=== PATIENT | female | born 1955 | race Caucasian/White ===

== ENCOUNTER 2016-11-13 13:10 | Inpatient (IN) | payer OTHER ==
[~2016-11-13] VITALS: Ht 163.8 cm; Wt 108.4 kg
[2016-11-16] MEDS ORDERED: ESTR1TAB PO (14:11)
[2016-11-16] MEDS ORDERED: DICY10CA12 PO (14:11)
[2016-11-16] MEDS ORDERED: CLON0.5T PO (14:11)
[2016-11-16] MEDS ORDERED: CITA10TA4 PO (14:11)
[2016-11-16] MEDS ORDERED: ATOR40TA16 PO (14:11)
[2016-11-16] MEDS ORDERED: LISI10TA3 PO (14:11)
[2016-11-16] MEDS ORDERED: MELO-1 PO (14:11)
[2016-11-16] MEDS ORDERED: GLIP5TAB8 PO (14:11)
[2016-11-16] MEDS ORDERED: PANT20TA2 PO (14:11)
[2016-11-16] MEDS ORDERED: CHOL4POW4 PO (14:12)
[2016-11-16] MEDS ORDERED: CARV25TA PO (14:23)
[2016-11-17] MEDS ORDERED: SODIUM CHLORID 0.9% 500 ML IV PRN (11:45)
[2016-11-17] MEDS ORDERED: INSULIN HUMAN REGULAR 1,000 UNITS/10 ML VIAL SQ PRN (11:45)
[2016-11-17] MEDS ORDERED: CHLORHEXIDINE GLUCONATE 2 % 1 PACK (2 CLOTHS) TOPICAL PRN (11:45)
[2016-11-17] MEDS ORDERED: LACTATED RINGER'S 1000 ML IV PRN (11:45)
[2016-11-17] MEDS ORDERED: POVIDONE IODINE 5% (ANTISEPSIS KIT) 4 APPLICATIONS EACH NARE PRN (11:45)
[2016-11-17] MEDS ORDERED: ceFAZolin 3,000 MG/NS 100 ML (if >120 kg) IV SCH ×2 (11:45)
[2016-11-17] MEDS ORDERED: METOPROLOL TARTRATE 25 MG TAB PO PRN (11:45)
[2016-11-17 11:57] VITALS: BP 157/90; PULSE 83; RESP 20; TEMP 97.9; O2SAT 95
[2016-11-17] MEDS ORDERED: PROPOFOL 200 MG/20 ML AMP IV ONE (12:00)
[2016-11-17] MEDS ORDERED: NEOSTIGMINE 3 MG/3 ML SYR IV ONE (12:00)
[2016-11-17] MEDS ORDERED: GENTAMICIN IV SCH (12:00)
[2016-11-17] MEDS ORDERED: LACTATED RINGER'S 1000 ML INJ 4,000 ML IV ONE (12:00)
[2016-11-17] MEDS ORDERED: ONDANSETRON HCL 4 MG/2 ML VIAL IV PUSH ONE (12:00)
[2016-11-17] MEDS ORDERED: SODIUM CHLORIDE 0.9% IV SCH (12:00)
[2016-11-17] MEDS ORDERED: PHENYLEPH/NS 1000 MCG/10 ML SYR IV ONE (12:00)
[2016-11-17] MEDS ORDERED: MIDAZOLAM HCL 2 MG/2 ML VIAL ONE ×2 (13:41→15:06)
[2016-11-17] MEDS ORDERED: fentaNYL CITRATE 250 MCG/5 ML AMP ONE ×2 (15:06→17:10)
[2016-11-17] MEDS ORDERED: *morphine SULFATE 8 MG/ML PERIprocedure ONLY ONE ×2 (17:02→17:07)
[2016-11-17] MEDS ORDERED: MORPHINE SULFATE 4 MG/ML INJ ONE (17:10)
[2016-11-17] MEDS ORDERED: *HYDROmorphone PF 1 MG VIAL PERIprocedural Use ONLY ONE ×2 (17:10→17:17)
[2016-11-17] MEDS ORDERED: MORPHINE SULFATE 30 MG/30 ML PCA ONE (17:12)
[2016-11-17] MEDS ORDERED: LABETALOL HCL 100 MG/20 ML VIAL ONE (17:22)
[2016-11-17 17:30] LABS: HEMATOCRIT 41.9 % (35.0-46.0); REVIEW FLAG FINAL
[2016-11-17] MEDS ORDERED: MORPHINE SULFATE 30 MG/30 ML PCA IV SCH (17:30)
[2016-11-17] MEDS ORDERED: NALOXONE HCL 0.4 MG/ML AMP IV PRN (17:30)
[2016-11-17] MEDS ORDERED: DO NOT ADM ANY ANTICOAGULANT DRUGS PRN (17:45)
[2016-11-17] MEDS ORDERED: DEXT 5%-NACL 0.45% 1000 ML INJ 1,000 ML IV SCH (18:00)
--- NOTE | 2016-11-17 20:01 | PD.CONS ---
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 Postprocedure patient is admitted to ICU and critical care medicine is consulted for medical management. Review of Systems Constitutional: DENIES: Diaphoretic episodes, Fatigue, Fever, Weight gain, Weight loss, Chills, Dizziness, Change in appetite, Night Sweats Endocrine: DENIES: Abnorml menstrual pattern, Heat/cold intolerance, Polydipsia , Polyuria, Polyphagia Eyes: DENIES: Blurred vision, Diplopia, Eye inflammation, Eye pain, Vision loss , Photosensitivity, Double Vision Ears, nose, mouth, throat: DENIES: Tinnitus, Hearing loss, Vertigo, Nasal discharge, Oral lesions, Throat pain, Hoarseness, Ear Pain, Running Nose, Epistaxis, Sinus Pain, Toothache, Odynophagia Respiratory: DENIES: Apneas, Cough, Snoring, Wheezing, Hemoptysis, Sputum production, Shortness of breath Cardiovascular: DENIES: Chest pain, Palpitations, Syncope, Dyspnea on Exertion , PND, Lower Extremity Edema, Orthopnea, Claudication Gastrointestinal: DENIES: Abdominal pain, Black stools, Bloody stools, Constipation, Diarrhea, Nausea, Vomiting, Difficulty Swallowing, Anorexia Genitourinary: COMPLAINS OF: Urinary frequency, Hematuria, DENIES: Abnormal vaginal bleeding, Dysmenorrhea, Dyspareunia, Sexual dysfunction, Urinary incontinence, Urgency, Dysuria, Nocturia, Vaginal discharge Musculoskeletal: DENIES: Joint pain, Muscle aches, Stiffness, Joint Swelling, Back pain, Neck pain Integumentary: DENIES: Abnormal pigmentation, Pruritus, Rash, Nail changes, Breast masses, Breast skin changes, Nipple discharge Hematologic/lymphatic: DENIES: Bruising, Lymphadenopathy Immunologic/allergic: DENIES: Eczema, Urticaria Neurologic: DENIES: Abnormal gait, Headache, Localized weakness, Paresthesias, Seizures, Speech Problems, Tremor, Poor Balance Psychiatric: COMPLAINS OF: Anxiety, Depression, DENIES: Confusion, Mood changes, Hallucinations, Agitation, Suicidal Ideation, Homicidal Ideation, Delusions Past Family Social History Allergies: Coded Allergies: Codeine (Verified Allergy, Severe, Nausea/Vomiting, 11/16/16) Past Medical History Hypertension Type 2 diabetes mellitus Dyslipidemia Anxiety Depressions Arthritis GERD Past Surgical History None Reported Medications Reported Meds & Active Scripts Active Reported Carvedilol 25 Mg Tab 25 Mg PO BID Cholestyramine 4 Gm/Pkt Powd 4 Gm PO BID 1 packet contains 4 grams of cholestyramine. Dicyclomine (Dicyclomine HCl) 10 Mg Cap 10 Mg PO BID PRN Clonazepam 0.5 Mg Tab 0.5 Mg PO HS PRN Atorvastatin (Atorvastatin Calcium) 40 Mg Tab 40 Mg PO HS Lisinopril 10 Mg Tab 10 Mg PO DAILY Glipizide 5 Mg Tab 5 Mg PO DAILY Take 30 minutes before a meal Citalopram (Citalopram Hydrobromide) 10 Mg Tab 10 Mg PO DAILY Meloxicam 15 Mg Tab 15 Mg PO DAILY Estradiol 1 Mg Tab 1 Mg PO DAILY Pantoprazole (Pantoprazole Sodium) 20 Mg Tab 20 Mg PO DAILY Active Ordered Medications Current Medications Medications (Trade) Dose Ordered Sig/Ethan Route PRN Reason Start Time Stop Time Status Last Admin Dose Admin Morphine Sulfate (Morphine 1 Mg/ ml ASSORTER) 30 mg UNSCH IV 11/17/16 17:30 11/17/16 20:51 ASSORTER Dosage Infused (Pha) 1 Q8HR .XX 11/17/16 22:00 Naloxone HCl 0.4 mg 0.4 mg UNSCH PRN IV RESPIRATORY RATE LESS THAN 10 11/17/16 17:30 Dextrose/Sodium Chloride (D5W-07/20 NS 1000 ml Inj) 1,000 ml @ 150 mls/hr Q6H40M IV 11/17/16 18:00 11/17/16 18:00 Miscellaneous Information ALL NURSING DEPARTME... UNSCH PRN .XX SEE LABEL COMMENTS 11/17/16 17:45 11/18/16 17:44 Dextrose (D50w (Vial) Inj) 25 ml UNSCH PRN IV PUSH HYPOGLYCEMIA-SEE COMMENTS 11/17/16 20:15 Glucagon (Glucagon Inj) 1 mg UNSCH PRN OTHER HYPOGLYCEMIA-SEE COMMENTS 11/17/16 20:15 Atorvastatin Calcium (Lipitor) 40 mg HS PO 11/17/16 21:00 Carvedilol (Coreg) 25 mg BID PO 11/17/16 21:00 Cholestyramine Resin (Questran 4 Gm Pkt) 4 gm BID PO 11/17/16 21:00 Citalopram Hydrobromide (CeleXA) 10 mg DAILY PO 11/18/16 09:00 Clonazepam (KlonoPIN) 0.5 mg HS PRN PO MILD ANXIETY 11/17/16 20:45 Dicyclomine HCl (Bentyl) 10 mg BID PRN PO Bowel Management 11/17/16 20:45 Estradiol (Estradiol) 1 mg DAILY PO 11/18/16 09:00 Meloxicam (Mobic) 15 mg DAILY PO 11/18/16 09:00 Pantoprazole Sodium (Protonix) 20 mg DAILY PO 11/18/16 09:00 Family History Noncontributory Social History Negative 3 Physical Exam Vital Signs Vital Signs Date Time Temp Pulse Resp B/P Pulse Ox O2 Delivery O2 Flow Rate FiO2 11/17/16 11:57 97.9 83 20 157/90 95 Physical Exam GENERAL: Well-nourished, well-developed patient. SKIN: Warm and dry. HEAD: Normocephalic. EYES: No scleral icterus. No injection or drainage. NECK: Supple, trachea midline. No JVD or lymphadenopathy. CARDIOVASCULAR: Regular rate and rhythm without murmurs, gallops, or rubs. RESPIRATORY: Breath sounds equal bilaterally. No accessory muscle use. GASTROINTESTINAL: Abdomen soft, non-tender, nondistended. MUSCULOSKELETAL: No cyanosis, or edema. BACK: Nontender without obvious deformity. No CVA tenderness. EXTREMITIES: No clubbing cyanosis or edema Laboratory Laboratory Tests Test 11/17/16 11/17/16 11/17/16 12:00 15:40 17:13 Blood Type A POSITIVE A POSITIVE Antibody Screen NEGATIVE Blood Bank Comment Crossmatch Leukocyte-Reduced Red Blood Cells Hemoglobin 13.3 Hematocrit 41.9 Result Diagram: 11/17/16 1711 Assessment and Plan Assessment and Plan Status post radical left nephrectomy - Admit to ICU - BMP IN the morning - Strict I's and O's - IV fluid hydration - Management per urologist Hypertension - Coreg - Hold JAXON inhibitor pending BMP Type 2 diabetes mellitus - Insulin sliding scale - Hold glipizide while patient in the ICU Dyslipidemia - Atorvastatin Anxiety - Clonazepam when necessary Depressions - Celexa Arthritis - Meloxicam - We will hold while in the unit GERD - Protonix DVT GI prophylaxis - Teds SCDs, pharmacal prophylaxis per surgeon - Protonix Critical Care: The total critical care time was 35 minutes. Time to perform other separately billable procedures was not included in the critical care time. Rich March MD November 17, 2016 20:01
[2016-11-17 20:10] LABS: HEMATOCRIT 38.9 % (35.0-46.0); REVIEW FLAG FINAL
[2016-11-17] MEDS ORDERED: GLUCAGON 1 MG/ML VIAL OTHER PRN (20:15)
[2016-11-17] MEDS ORDERED: DEXTROSE 50% IN WATER 50 ML VIAL(D50) IV PUSH PRN (20:15)
[2016-11-17] MEDS ORDERED: DICYCLOMINE HCL 10 MG CAP PO PRN (20:45)
[2016-11-17] MEDS: ATORVASTATIN 40 MG TAB PO SCH (21:00)
[2016-11-17] MEDS: CARVEDILOL 12.5 MG TAB PO SCH (21:00)
[2016-11-17] MEDS ORDERED: CHOLESTYRAMINE 4 GM PACKET PO SCH (21:00)
[2016-11-17] MEDS: PCA - TOTAL MG MORPHINE DELIVERED PER SHIFT SCH (22:00)
[2016-11-17] MEDS ORDERED: SODIUM CHLOR 0.9% 1000 ML INJ 1,000 ML IV ONE (23:15)
[2016-11-17] MEDS: SODIUM CHLOR 0.9% 1000 ML INJ 1,000 ML IV SCH (23:15)
--- NOTE | 2016-11-17 23:22 | MP ---
cc: KATIE QIU MD DATE OF SURGERY: 11/17/2016 PREOPERATIVE DIAGNOSIS: Left renal mass. POSTOPERATIVE DIAGNOSIS: Left renal mass. OPERATION: Left radical nephrectomy. SURGEON: Dr. Qiu. BANKING SERVICES ADVISOR: Mario Guzman MD. ANESTHESIA General. NOTE IN DETAIL The patient is a 61-year-old was referred to our service in early October secondary to a mass that was noted on a CT scan for other reasons by Dr. Bunch. 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 Several urologists studied the films in our office. 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 Because of the size of the mass and the venous extension, etc., we elected to do this as an open procedure rather than as a laparoscopic assisted or as a robotic procedure as has become our custom. Her risk factors were enormous given her extreme, rather morbid obesity. We vacillated between a left flank incision and a chevron incision and ultimately settled on a chevron incision. She understood that she was at high-risk. She had received appropriate preoperative antibiotics in the holding area and was then taken to the operating room. General anesthesia was administered. A time out was taken for identification purposes and then she was placed in a slightly hyperextended supine position. Her left flank had been marked by the undersigned in the holding area before being moved to the operating room. Then a left chevron incision was made after she had been prepped and draped and a Puga catheter inserted. This was carried on down through a very large amount of adipose tissue to the rectus abdominis, etc., and through all of those layers and on into the abdomen. The left line of Toldt was then entered in to peel the left colon over the top of Gerota's fascia and blunt and sharp dissection was then utilized to free up the kidney. Because she had so much fat the adrenal gland actually slid off of the top of the kidney on the left hand side, and we elected therefore to leave it behind, since this was a lower pole mass predominantly. 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 We were able to milk the renal vein thrombus back into the kidney and use the stapling device across the vein and felt that this was quite clean. The artery was included in all of that. We appeared to have rather good hemostasis once we had the kidney taken out, but in the process of so doing, we did lose about 650 cc. She remained stable throughout all of this. We then carefully ran the small bowel to make sure that there were no injuries. We then allowed all of the remaining bowel to retract back into its normal anatomic position and then the anterior wall was closed in a multitude of layers with 0 PDS ligature. The skin was then closed over with skin clips. She tolerated the procedure well and was returned to the Recovery Room in stable condition. MD LUCY Vidal/CELIA /5:00 PM /10:57 PM
[2016-11-17] MEDS: INSULIN ASPART SUPPLEMENTAL SCALE SQ SCH (23:30)
[2016-11-18] VITALS (13 sets, daily range): BP systolic 125–161; BP diastolic 62–83; PULSE 82–108; RESP 11–20; TEMP 97.8–99.4; O2SAT 92–99
[2016-11-18] MEDS ORDERED: SODIUM CHLOR 0.9% 1000 ML INJ 1,000 ML IV SCH (03:30)
[2016-11-18] MEDS: SODIUM CHLOR 0.9% 1000 ML INJ 1,000 ML IV SCH ×2 (03:41→08:54)
[2016-11-18 04:41] LABS: AUTOMATED NEUTROPHIL # 7.1 TH/MM3 (1.8-7.7); BASOPHIL % 0.4 % (0.0-2.0); EOSINOPHIL % 0.1 % (0.0-4.0); HEMATOCRIT 37.9 % (35.0-46.0); HEMO FLAGS DIFF FINAL; LYMPH % 13.2 % (9.0-44.0); LYMPHOCYTE # 1.2 TH/MM3 (1.0-4.8); MEAN CELL VOLUME 82.8 FL (80.0-100.0); MEAN CORPUSCULAR HEMOGLOBIN 27.4 PG (27.0-34.0); MEAN CORPUSCULAR HGB CONC 33.2 % (32.0-36.0); MONO % 10.3 % (0.0-8.0); PLATELET COUNT 300 TH/MM3 (150-450); RED BLOOD COUNT 4.58 MIL/MM3 (4.00-5.30); RED CELL DISTRIBUTION WIDTH 16.1 % (11.6-17.2); WHITE BLOOD COUNT 9.3 TH/MM3 (4.0-11.0)
[2016-11-18 04:56] LABS: BICARBONATE 22.3 MEQ/L (21.0-32.0); CALCIUM-PROTEIN CORRECTED 7.7 MG/DL (8.5-10.1); MAGNESIUM 1.6 MG/DL (1.5-2.5); POTASSIUM 4.3 MEQ/L (3.5-5.1); TOTAL BILIRUBIN ADULT 0.4 MG/DL (0.2-1.0)
[2016-11-18] MEDS: PCA - TOTAL MG MORPHINE DELIVERED PER SHIFT SCH ×2 (05:06→14:00)
[2016-11-18] MEDS: INSULIN ASPART SUPPLEMENTAL SCALE SQ SCH ×4 (06:05→20:52)
[2016-11-18] MEDS: CITALOPRAM HYDROBROMIDE 20 MG TAB PO SCH (08:52)
[2016-11-18] MEDS: ESTRADIOL 1 MG TAB PO SCH (08:52)
[2016-11-18] MEDS: PANTOPRAZOLE SOD 20 MG DELAYED RELEASE TAB PO SCH (08:52)
[2016-11-18] MEDS: CARVEDILOL 12.5 MG TAB PO SCH ×2 (08:53→20:32)
[2016-11-18] MEDS ORDERED: MELOXICAM 15 MG TAB PO SCH (09:00)
--- NOTE | 2016-11-18 11:37 | HHI.CCPN ---
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 Postprocedure patient is admitted to ICU and critical care medicine is consulted for medical management. 10/19: Urine output acceptable. Stable hemodynamics. Objective Vital Signs Date Time Temp Pulse Resp B/P Pulse Ox O2 Delivery O2 Flow Rate FiO2 11/18/16 10:00 98 11/18/16 08:08 97 Nasal Cannula 1.00 11/18/16 08:00 97.8 15 131/62 Intake and Output 11/17/16 11/17/16 11/18/16 08:00 16:00 00:00 Intake Total 5158 ml Output Total 1208 ml Balance 3950 ml Result Diagram: 11/18/1640811/18/16408 Objective Remarks GENERAL: Well-nourished, well-developed patient. SKIN: Warm and dry. NECK: Supple, trachea midline. Airway widely patent. CARDIOVASCULAR: Regular rate and rhythm without murmurs, gallops, or rubs. RESPIRATORY: Breath sounds equal bilaterally. Comfortable pattern. GASTROINTESTINAL: Abdomen soft, non-tender, nondistended. BS present. MUSCULOSKELETAL: No cyanosis, or edema. Well perfused. BACK: Nontender without obvious deformity. No CVA tenderness. EXTREMITIES: No clubbing cyanosis or edema NEURO: Alert, O X 3, cooperative. A/P Assessment and Plan Status post radical left nephrectomy - Admit to ICU - BMP IN the morning - Strict I's and O's - IV fluid hydration Hypertension - Coreg - Hold JAXON inhibitor pending BMP Type 2 diabetes mellitus - Insulin sliding scale - Hold glipizide while patient in the ICU Dyslipidemia - Atorvastatin Anxiety - Clonazepam when necessary Depressions - Celexa Arthritis - Meloxicam - We will hold while in the unit GERD - Protonix DVT GI prophylaxis - Teds SCDs, pharmacal prophylaxis per surgeon - Protonix Overall impression: Doing well s/p nephrectomy. Olayinka Casillas MD November 18, 2016 11:37
[2016-11-18] MEDS: DEXT 5%-NACL 0.9% 1000 ML INJ 1,000 ML IV SCH ×2 (15:00→21:44)
[2016-11-18] MEDS: ONDANSETRON HCL 4 MG/2 ML VIAL IV PUSH PRN (15:35)
[2016-11-18] MEDS: CHOLESTYRAMINE 4 GM PACKET PO SCH (18:00)
[2016-11-18] MEDS ORDERED: diphenhydrAMINE HCL 25 MG CAP PO PRN (19:15)
[2016-11-18] MEDS ORDERED: NALOXONE HCL 0.4 MG/ML AMP IV PRN (19:15)
[2016-11-18] MEDS: ATORVASTATIN 40 MG TAB PO SCH (20:32)
[2016-11-18] MEDS: ACETAMINOPHEN 325 MG TAB PO PRN (20:33)
[2016-11-18] MEDS: HYDROmorphone HCL PCA 6 MG/30 ML IV SCH (20:38)
[2016-11-18] MEDS: PCA - TOTAL MG DILAUDID DELIVERED PER SHIFT SCH (22:00)
[2016-11-19] VITALS (12 sets, daily range): BP systolic 120–172; BP diastolic 65–88; PULSE 71–92; RESP 12–18; TEMP 98.1–98.5; O2SAT 92–95
[2016-11-19] MEDS: DEXT 5%-NACL 0.9% 1000 ML INJ 1,000 ML IV SCH ×3 (03:36→16:32)
[2016-11-19] MEDS: ONDANSETRON HCL 4 MG/2 ML VIAL IV PUSH PRN ×4 (03:39→21:54)
[2016-11-19 03:53] LABS: AUTOMATED NEUTROPHIL # 5.8 TH/MM3 (1.8-7.7); BASOPHIL % 0.5 % (0.0-2.0); EOSINOPHIL # 0.1 TH/MM3 (0-0.4); EOSINOPHIL % 1.2 % (0.0-4.0); HEMATOCRIT 33.7 % (35.0-46.0); HEMO FLAGS DIFF FINAL; LYMPH % 19.4 % (9.0-44.0); LYMPHOCYTE # 1.6 TH/MM3 (1.0-4.8); MEAN CELL VOLUME 82.1 FL (80.0-100.0); MEAN CORPUSCULAR HEMOGLOBIN 26.3 PG (27.0-34.0); MONO % 10.3 % (0.0-8.0); NEUT % 68.6 % (16.0-70.0); PLATELET COUNT 240 TH/MM3 (150-450); RED BLOOD COUNT 4.11 MIL/MM3 (4.00-5.30); RED CELL DISTRIBUTION WIDTH 15.8 % (11.6-17.2); WHITE BLOOD COUNT 8.5 TH/MM3 (4.0-11.0)
[2016-11-19 04:26] LABS: BICARBONATE 25.7 MEQ/L (21.0-32.0); POTASSIUM 3.8 MEQ/L (3.5-5.1)
[2016-11-19 04:39] LABS: CALCIUM-PROTEIN CORRECTED 8.2 MG/DL (8.5-10.1)
[2016-11-19] MEDS: PCA - TOTAL MG DILAUDID DELIVERED PER SHIFT SCH ×3 (06:00→22:00)
[2016-11-19] MEDS: CHOLESTYRAMINE 4 GM PACKET PO SCH ×2 (06:00→17:25)
[2016-11-19] MEDS: INSULIN ASPART SUPPLEMENTAL SCALE SQ SCH ×4 (06:29→21:00)
[2016-11-19] MEDS ORDERED: PNEUMOCOCCAL POLYVALENT INJ 25 MCG/0.5 ML SYR IM ONE (10:00)
[2016-11-19] MEDS ORDERED: INFLUENZA VIRUS VACCINE (QUADRIVALENT) 0.5 ML SYR IM ONE (10:00)
[2016-11-19] MEDS: CARVEDILOL 12.5 MG TAB PO SCH ×2 (10:36→21:55)
[2016-11-19] MEDS: ESTRADIOL 1 MG TAB PO SCH (10:36)
[2016-11-19] MEDS: PANTOPRAZOLE SOD 20 MG DELAYED RELEASE TAB PO SCH (10:41)
[2016-11-19] MEDS: CITALOPRAM HYDROBROMIDE 20 MG TAB PO SCH (10:41)
[2016-11-19] MEDS: ACETAMINOPHEN 325 MG TAB PO PRN (16:29)
--- NOTE | 2016-11-19 17:53 | HHI.CCPN ---
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 Postprocedure patient is admitted to ICU and critical care medicine is consulted for medical management. 11/18: Urine output acceptable. Stable hemodynamics. 11/19: Breathing comfortably, urine acceptable, remains well perfused. Objective Vital Signs Date Time Temp Pulse Resp B/P Pulse Ox O2 Delivery O2 Flow Rate FiO2 11/19/16 16:00 98.3 90 18 127/70 94 11/19/16 07:00 Nasal Cannula 1.00 Intake and Output 11/18/16 11/18/16 11/19/16 08:00 16:00 00:00 Intake Total 1948 ml 2180 ml 886 ml Output Total 250 ml 1675 ml 1500 ml Balance 1698 ml 505 ml -614 ml Result Diagram: 11/19/16 0326 11/19/16 0326 Objective Remarks GENERAL: Comfortable. SKIN: Warm and dry. NECK: Supple, trachea midline. Airway widely patent. CARDIOVASCULAR: Regular rate and rhythm without murmurs, gallops, or rubs. No JVD. RESPIRATORY: Breath sounds equal bilaterally. Comfortable pattern. GASTROINTESTINAL: Abdomen soft, non-tender, nondistended. BS present. MUSCULOSKELETAL: No cyanosis, or edema. Well perfused.. NEURO: Alert, O X 3, cooperative. A/P Assessment and Plan Status post radical left nephrectomy - Admit to ICU - BMP IN the morning - Strict I's and O's - IV fluid hydration Hypertension - Coreg - Hold JAXON inhibitor pending BMP Type 2 diabetes mellitus - Insulin sliding scale - Hold glipizide while patient in the ICU Dyslipidemia - Atorvastatin Anxiety - Clonazepam when necessary Depressions - Celexa Arthritis - Meloxicam - We will hold while in the unit GERD - Protonix DVT GI prophylaxis - Teds SCDs, pharmacal prophylaxis per surgeon - Protonix Overall impression: Doing well s/p nephrectomy. Ambulate. Olayinka Casillas MD November 19, 2016 17:53
--- NOTE | 2016-11-19 19:01 | HHI.PR ---
Subjective Patient symptoms today feels better, still nauseated, but less so than yesterday Objective Vital Signs Vital Signs Date Time Temp Pulse Resp B/P Pulse Ox O2 Delivery O2 Flow Rate FiO2 11/19/16 18:00 89 11/19/16 16:00 98.3 90 18 127/70 94 11/19/16 16:00 90 11/19/16 14:00 85 11/19/16 14:00 17 11/19/16 12:00 98.5 92 14 172/88 92 11/19/16 12:00 92 11/19/16 10:00 85 11/19/16 08:00 98.3 90 17 146/75 95 11/19/16 08:00 90 11/19/16 07:00 95 Nasal Cannula 1.00 11/19/16 06:00 80 11/19/16 06:00 14 11/19/16 04:00 98.3 82 13 120/65 93 11/19/16 04:00 82 11/19/16 02:00 82 11/19/16 00:00 98.4 86 13 128/69 93 11/19/16 00:00 86 11/18/16 22:00 96 11/18/16 22:00 16 11/18/16 20:38 20 11/18/16 20:00 104 11/18/16 20:00 99.4 104 20 161/80 96 11/18/16 19:00 92 Nasal Cannula 3.00 Intake & Output 11/19/16 11/19/16 07:00 19:00 Intake Total 2124 ml 1195 ml Output Total 2100 ml 950 ml Balance 24 ml 245 ml Intake Oral 20 ml 120 ml IV Total 2104 ml 1075 ml Output Urine Total 2100 ml 950 ml # Bowel Movements 0 Result Diagram: 11/19/16 0326 11/19/16 0326 Objective Remarks Chest clear Abd: no BS, no Flatus, no BM UO very good, clear, labs stable Medications and IVs Current Medications Medications (Trade) Dose Ordered Sig/Ethan Route Start Time Stop Time Status Last Admin (D50w (Vial) Inj) 25 ml UNSCH PRN IV PUSH 11/17/16 20:15 (Glucagon Inj) 1 mg UNSCH PRN OTHER 11/17/16 20:15 (Lipitor) 40 mg HS PO 11/17/16 21:00 11/18/16 20:32 (Coreg) 25 mg BID PO 11/17/16 21:00 11/19/16 10:36 (CeleXA) 10 mg DAILY PO 11/18/16 09:00 11/19/16 10:41 (KlonoPIN) 0.5 mg HS PRN PO 11/17/16 20:45 (Bentyl) 10 mg BID PRN PO 11/17/16 20:45 (Estradiol) 1 mg DAILY PO 11/18/16 09:00 11/19/16 10:36 (Mobic) 15 mg DAILY PO 11/18/16 09:00 Hold (Protonix) 20 mg DAILY PO 11/18/16 09:00 11/19/16 10:41 (Questran 4 Gm Pkt) 4 gm BID@06,18 PO 11/18/16 18:00 Acetaminophen 650 mg 650 mg Q6H PRN PO 11/18/16 14:30 11/19/16 16:29 (D5W-NS 1000 ml Inj) 1,000 ml @ 150 mls/hr Q6H40M IV 11/18/16 15:00 11/19/16 16:32 (Zofran Inj) 4 mg Q6H PRN IV PUSH 11/18/16 15:30 11/19/16 16:16 (Dilaudid SCHEDULING COORDINATOR Inj) 6 mg UNSCH IV 11/18/16 19:15 11/18/16 20:38 SCHEDULING COORDINATOR Dosage Infused (Pha) 1 Q8HR .XX 11/18/16 22:00 11/19/16 14:00 (Narcan Inj) 0.4 mg UNSCH PRN IV 11/18/16 19:15 (Benadryl) 25 mg Q6H PRN PO 11/18/16 19:15 Assessment and Plan Assessment and Plan ileus persists wound dry Plan: per orders, try Reglan and dulcolax continue to ambulate, incentive inspirometer repeat labs in the morning cath out in the morning path still pending Trudi,Espinoza Chacon MD November 19, 2016 19:01
[2016-11-19] MEDS: ATORVASTATIN 40 MG TAB PO SCH (21:00)
[2016-11-19] MEDS: BISACODYL 10 MG SUPP RECTAL SCH (21:00)
[2016-11-19] MEDS: METOCLOPRAMIDE HCL 10 MG/2 ML VIAL IV SCH (21:57)
[2016-11-19] MEDS: HYDROmorphone HCL PCA 6 MG/30 ML IV SCH (23:01)
[2016-11-20] VITALS (12 sets, daily range): BP systolic 109–171; BP diastolic 63–83; PULSE 62–74; RESP 11–18; TEMP 98–98.4; O2SAT 96–99
[2016-11-20] MEDS: DEXT 5%-NACL 0.9% 1000 ML INJ 1,000 ML IV SCH ×4 (00:20→17:44)
[2016-11-20] MEDS: ACETAMINOPHEN 325 MG TAB PO PRN ×4 (05:02→23:07)
[2016-11-20 05:55] LABS: BICARBONATE 26.3 MEQ/L (21.0-32.0); POTASSIUM 3.9 MEQ/L (3.5-5.1)
[2016-11-20] MEDS: PCA - TOTAL MG DILAUDID DELIVERED PER SHIFT SCH ×3 (06:00→22:00)
[2016-11-20] MEDS: CHOLESTYRAMINE 4 GM PACKET PO SCH ×2 (06:00→17:36)
[2016-11-20 06:02] LABS: AUTOMATED NEUTROPHIL # 6.9 TH/MM3 (1.8-7.7); BASOPHIL # 0.1 TH/MM3 (0-0.2); BASOPHIL % 1.5 % (0.0-2.0); EOSINOPHIL # 0.2 TH/MM3 (0-0.4); EOSINOPHIL % 2.1 % (0.0-4.0); HEMATOCRIT 31.4 % (35.0-46.0); HEMO FLAGS DIFF FINAL; LYMPH % 17.1 % (9.0-44.0); LYMPHOCYTE # 1.6 TH/MM3 (1.0-4.8); MEAN CELL VOLUME 81.6 FL (80.0-100.0); NEUT % 71.3 % (16.0-70.0); PLATELET COUNT 217 TH/MM3 (150-450); RED BLOOD COUNT 3.84 MIL/MM3 (4.00-5.30); RED CELL DISTRIBUTION WIDTH 15.7 % (11.6-17.2); WHITE BLOOD COUNT 9.6 TH/MM3 (4.0-11.0)
[2016-11-20 06:12] LABS: CALCIUM-PROTEIN CORRECTED 8.4 MG/DL (8.5-10.1)
[2016-11-20] MEDS: ONDANSETRON HCL 4 MG/2 ML VIAL IV PUSH PRN ×4 (06:15→23:12)
[2016-11-20] MEDS: INSULIN ASPART SUPPLEMENTAL SCALE SQ SCH ×4 (06:37→20:41)
[2016-11-20] MEDS: CARVEDILOL 12.5 MG TAB PO SCH ×2 (08:07→20:40)
[2016-11-20] MEDS: PANTOPRAZOLE SOD 20 MG DELAYED RELEASE TAB PO SCH (08:07)
[2016-11-20] MEDS: METOCLOPRAMIDE HCL 10 MG/2 ML VIAL IV SCH ×3 (08:08→17:35)
[2016-11-20] MEDS: BISACODYL 10 MG SUPP RECTAL SCH (08:08)
[2016-11-20] MEDS: CITALOPRAM HYDROBROMIDE 20 MG TAB PO SCH (08:09)
[2016-11-20] MEDS: ESTRADIOL 1 MG TAB PO SCH (08:13)
--- NOTE | 2016-11-20 13:38 | HHI.CCPN ---
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 Postprocedure patient is admitted to ICU and critical care medicine is consulted for medical management. 11/18: Urine output acceptable. Stable hemodynamics. 11/19: Breathing comfortably, urine acceptable, remains well perfused. 11/20: Alert, breathing well. Urine output excellent, renal function good. Add hydralazine for hypertension, hold JAXON-I until creatinine improved for several days. Objective Vital Signs Date Time Temp Pulse Resp B/P Pulse Ox O2 Delivery O2 Flow Rate FiO2 11/20/16 12:00 98.0 62 11 171/83 96 11/20/16 07:00 Nasal Cannula 2.00 Intake and Output 11/19/16 11/19/16 11/20/16 08:00 16:00 00:00 Intake Total 1238 ml 1195 ml 1252 ml Output Total 600 ml 950 ml 1200 ml Balance 638 ml 245 ml 52 ml Result Diagram: 11/20/16 0440 11/20/16 0440 Objective Remarks GENERAL: Comfortable. SKIN: Warm and dry. NECK: Supple, trachea midline. Airway widely patent. CARDIOVASCULAR: Regular rate and rhythm without murmurs, gallops, or rubs. No JVD. RESPIRATORY: Breath sounds equal bilaterally. Comfortable pattern. GASTROINTESTINAL: Abdomen soft, non-tender, nondistended. BS present. MUSCULOSKELETAL: No cyanosis, or edema. Well perfused.. NEURO: Alert, O X 3, cooperative. A/P Assessment and Plan Status post radical left nephrectomy - Admit to ICU - BMP IN the morning - Strict I's and O's - IV fluid hydration Hypertension - Coreg - Hold JAXON inhibitor pending BMP Type 2 diabetes mellitus - Insulin sliding scale - Hold glipizide while patient in the ICU Dyslipidemia - Atorvastatin Anxiety - Clonazepam when necessary Depressions - Celexa Arthritis - Meloxicam - We will hold while in the unit GERD - Protonix DVT GI prophylaxis - Teds SCDs, pharmacal prophylaxis per surgeon - Protonix Overall impression: Doing well s/p nephrectomy. Ambulate. Add anti-hypertensive meds. Olayinka Casillas MD November 20, 2016 13:38
[2016-11-20] MEDS: hydrALAZINE HCL 50 MG TAB PO SCH ×2 (14:40→20:40)
--- NOTE | 2016-11-20 17:18 | HHI.PR ---
Subjective Patient symptoms today feels better. Had 2 bowel movements. still nauseated. Zofran changed to q4. Denies CP/SOB/F/C. No appetite. Been OOB. on Dilaudid GARBAGE MAN. Objective Vital Signs Vital Signs Date Time Temp Pulse Resp B/P Pulse Ox O2 Delivery O2 Flow Rate FiO2 11/20/16 16:00 73 11/20/16 16:00 98.4 73 15 109/66 97 11/20/16 14:00 69 11/20/16 14:00 15 11/20/16 12:00 98.0 62 11 171/83 96 11/20/16 12:00 62 11/20/16 10:00 63 11/20/16 08:00 73 11/20/16 08:00 98.3 73 18 147/74 96 11/20/16 07:00 96 Nasal Cannula 2.00 11/20/16 06:37 15 11/20/16 06:00 70 11/20/16 06:00 15 11/20/16 04:00 73 11/20/16 04:00 98.1 72 18 152/79 99 11/20/16 02:00 71 11/20/16 00:00 74 11/20/16 00:00 98.0 74 15 118/63 99 11/19/16 23:01 15 11/19/16 22:00 71 11/19/16 22:00 15 11/19/16 20:00 98.1 78 12 155/74 95 11/19/16 20:00 96 Nasal Cannula 2.00 11/19/16 20:00 78 11/19/16 18:00 89 Intake & Output 11/20/16 11/20/16 07:00 19:00 Intake Total 2622 ml 1251 ml Output Total 2200 ml 1350 ml Balance 422 ml -99 ml Intake Oral 50 ml 50 ml IV Total 2572 ml 1201 ml Output Urine Total 2000 ml 1350 ml Emesis 200 ml # Bowel Movements 0 0 Result Diagram: 11/20/1643911/20/16 0440 Objective Remarks NAD. A/O x 3 CTAB RRR abd soft, NT, ND. dressing dry. [place] clear, yellow Medications and IVs Current Medications Medications (Trade) Dose Ordered Sig/Ethan Route Start Time Stop Time Status Last Admin (D50w (Vial) Inj) 25 ml UNSCH PRN IV PUSH 11/17/16 20:15 (Glucagon Inj) 1 mg UNSCH PRN OTHER 11/17/16 20:15 (Lipitor) 40 mg HS PO 11/17/16 21:00 11/18/16 20:32 (Coreg) 25 mg BID PO 11/17/16 21:00 11/20/16 08:07 (CeleXA) 10 mg DAILY PO 11/18/16 09:00 11/20/16 08:09 (KlonoPIN) 0.5 mg HS PRN PO 11/17/16 20:45 (Bentyl) 10 mg BID PRN PO 11/17/16 20:45 (Estradiol) 1 mg DAILY PO 11/18/16 09:00 11/20/16 08:13 (Mobic) 15 mg DAILY PO 11/18/16 09:00 Hold (Protonix) 20 mg DAILY PO 11/18/16 09:00 11/20/16 08:07 (Questran 4 Gm Pkt) 4 gm BID@06,18 PO 11/18/16 18:00 Acetaminophen 650 mg 650 mg Q6H PRN PO 11/18/16 14:30 11/20/16 11:44 (D5W-NS 1000 ml Inj) 1,000 ml @ 100 mls/hr Q10H IV 11/18/16 15:00 11/20/16 11:54 (Dilaudid GARBAGE MAN Inj) 6 mg UNSCH IV 11/18/16 19:15 11/19/16 23:01 GARBAGE MAN Dosage Infused (Pha) 1 Q8HR .XX 11/18/16 22:00 11/20/16 14:00 (Narcan Inj) 0.4 mg UNSCH PRN IV 11/18/16 19:15 (Benadryl) 25 mg Q6H PRN PO 11/18/16 19:15 (Dulcolax Supp) 10 mg DAILY RECTAL 11/19/16 21:00 11/20/16 08:08 (Reglan Inj) 5 mg TID IV 11/19/16 21:00 11/20/16 12:01 (Apresoline) 50 mg Q12HR PO 11/20/16 13:45 11/20/16 14:40 (Zofran Inj) 4 mg Q4H PRN IV PUSH 11/20/16 17:15 Assessment and Plan Assessment and Plan POD #3 Left Open Radical Nephrectomy -Increase Reglan to 10 mg TID. -Ambulate/IS -d/c [place] in a.m. -possible clears tomorrow -Dilaudid GARBAGE MAN Mario Guzman MD November 20, 2016 17:18
[2016-11-20] MEDS: ATORVASTATIN 40 MG TAB PO SCH (20:41)
[2016-11-20] MEDS: clonazePAM 0.5 MG TAB PO PRN (23:15)
[2016-11-20] MEDS: HYDROmorphone HCL PCA 6 MG/30 ML IV SCH (23:30)
[2016-11-21] VITALS (12 sets, daily range): BP systolic 107–168; BP diastolic 56–89; PULSE 61–92; RESP 15–21; TEMP 97.8–98.3; O2SAT 96–97
[2016-11-21] MEDS: CHOLESTYRAMINE 4 GM PACKET PO SCH ×2 (04:04→17:42)
[2016-11-21] MEDS: ONDANSETRON HCL 4 MG/2 ML VIAL IV PUSH PRN ×2 (04:05→15:42)
[2016-11-21] MEDS: ACETAMINOPHEN 325 MG TAB PO PRN (04:05)
[2016-11-21] MEDS: DEXT 5%-NACL 0.9% 1000 ML INJ 1,000 ML IV SCH ×3 (04:05→16:13)
[2016-11-21 05:26] LABS: BICARBONATE 26.8 MEQ/L (21.0-32.0); POTASSIUM 3.3 MEQ/L (3.5-5.1)
[2016-11-21] MEDS: PCA - TOTAL MG DILAUDID DELIVERED PER SHIFT SCH (06:00)
[2016-11-21] MEDS: INSULIN ASPART SUPPLEMENTAL SCALE SQ SCH ×4 (06:11→21:00)
[2016-11-21] MEDS ORDERED: POTASSIUM CHLOR 20 MEQ PREMIX 100 ML IV ONE ×2 (07:15→18:30)
--- NOTE | 2016-11-21 07:23 | HHI.CCPN ---
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 Postprocedure patient is admitted to ICU and critical care medicine is consulted for medical management. 11/18: Urine output acceptable. Stable hemodynamics. 11/19: Breathing comfortably, urine acceptable, remains well perfused. 11/20: Alert, breathing well. Urine output excellent, renal function good. Add hydralazine for hypertension, hold JAXON-I until creatinine improved for several days. 11/21: Urine output excellent. Replace K. BP control improved. Objective Vital Signs Date Time Temp Pulse Resp B/P Pulse Ox O2 Delivery O2 Flow Rate FiO2 11/21/16 06:00 61 11/21/16 06:00 22 11/21/16 04:00 97.8 134/81 97 11/20/16 19:00 Nasal Cannula 2.00 Intake and Output 11/20/16 11/20/16 11/21/16 08:00 16:00 00:00 Intake Total 1370 ml 1251 ml 773 ml Output Total 1000 ml 1350 ml 525 ml Balance 370 ml -99 ml 248 ml Result Diagram: 11/20/16 0440 11/21/16 0416 Objective Remarks GENERAL: Comfortable. SKIN: Warm and dry. NECK: Supple, trachea midline. Airway widely patent. CARDIOVASCULAR: Regular rate and rhythm without murmurs, gallops, or rubs. No JVD. RESPIRATORY: Breath sounds equal bilaterally. Comfortable pattern. No wheezes or crackles. GASTROINTESTINAL: Abdomen soft, nondistended. BS present. MUSCULOSKELETAL: No cyanosis, or edema. Well perfused. NEURO: Alert, O X 3, cooperative. A/P Assessment and Plan Status post radical left nephrectomy - Admit to ICU - BMP IN the morning - Strict I's and O's - IV fluid hydration at 75. Hypertension - Coreg - Hold JAXON inhibitor pending BMP. Restart any day. Type 2 diabetes mellitus - Insulin sliding scale - Hold glipizide while patient in the ICU Dyslipidemia - Atorvastatin Anxiety - Clonazepam when necessary Depressions - Celexa Arthritis - Meloxicam - We will hold while in the unit GERD - Protonix DVT GI prophylaxis - Teds SCDs, pharmacal prophylaxis per surgeon - Protonix Overall impression: Doing well s/p nephrectomy. Ambulate. Add anti-hypertensive meds -> done. Olayinka Casillas MD November 21, 2016 07:23
--- NOTE | 2016-11-21 08:03 | HHI.PR ---
Subjective Patient symptoms today no acute issues overnight. pain controlled. nausea improved. Had BM. Has appetite. Denies CP/SOB. continues to have headaches. Has used Tramadol in past with good success. Objective Vital Signs Vital Signs Date Time Temp Pulse Resp B/P Pulse Ox O2 Delivery O2 Flow Rate FiO2 11/21/16 07:00 99 Nasal Cannula 2.00 11/21/16 06:00 61 11/21/16 06:00 22 11/21/16 04:00 97.8 67 18 134/81 97 11/21/16 04:00 69 11/21/16 02:00 61 11/21/16 00:00 63 11/21/16 00:00 98.1 63 15 107/56 96 11/20/16 23:30 22 11/20/16 22:00 72 11/20/16 22:00 21 11/20/16 20:00 98.4 70 16 146/78 96 11/20/16 20:00 64 11/20/16 19:00 97 Nasal Cannula 2.00 11/20/16 18:00 68 11/20/16 16:00 73 11/20/16 16:00 98.4 73 15 109/66 97 11/20/16 14:00 69 11/20/16 14:00 15 11/20/16 12:00 98.0 62 11 171/83 96 11/20/16 12:00 62 11/20/16 10:00 63 Intake & Output 11/21/16 11/21/16 07:00 19:00 Intake Total 1495 ml Output Total 1075 ml Balance 420 ml Intake Oral 100 ml IV Total 1395 ml Output Urine Total 1075 ml # Bowel Movements 2 Result Diagram: 11/20/16 0440 11/21/16 0416 Objective Remarks NAD. A/O x 3 CTAB RRR abd soft, NT, ND. dressing dry. [place] clear, yellow Medications and IVs Current Medications Medications (Trade) Dose Ordered Sig/Ethan Route Start Time Stop Time Status Last Admin (D50w (Vial) Inj) 25 ml UNSCH PRN IV PUSH 11/17/16 20:15 (Glucagon Inj) 1 mg UNSCH PRN OTHER 11/17/16 20:15 (Lipitor) 40 mg HS PO 11/17/16 21:00 11/20/16 20:41 (Coreg) 25 mg BID PO 11/17/16 21:00 11/20/16 20:40 (CeleXA) 10 mg DAILY PO 11/18/16 09:00 11/20/16 08:09 (KlonoPIN) 0.5 mg HS PRN PO 11/17/16 20:45 11/20/16 23:15 (Bentyl) 10 mg BID PRN PO 11/17/16 20:45 (Estradiol) 1 mg DAILY PO 11/18/16 09:00 11/20/16 08:13 (Mobic) 15 mg DAILY PO 11/18/16 09:00 Hold (Protonix) 20 mg DAILY PO 11/18/16 09:00 11/20/16 08:07 (Questran 4 Gm Pkt) 4 gm BID@06,18 PO 11/18/16 18:00 Acetaminophen 650 mg 650 mg Q6H PRN PO 11/18/16 14:30 11/21/16 04:05 (D5W-NS 1000 ml Inj) 1,000 ml @ 75 mls/hr [id number] IV 11/18/16 15:00 11/21/16 04:05 (Dilaudid [employer] Inj) 6 mg UNSCH IV 11/18/16 19:15 11/20/16 23:30 [employer] Dosage Infused (Pha) 1 Q8HR .XX 11/18/16 22:00 11/21/16 06:00 (Narcan Inj) 0.4 mg UNSCH PRN IV 11/18/16 19:15 (Benadryl) 25 mg Q6H PRN PO 11/18/16 19:15 (Dulcolax Supp) 10 mg DAILY RECTAL 11/19/16 21:00 11/20/16 08:08 (Apresoline) 50 mg Q12HR PO 11/20/16 13:45 11/20/16 20:40 (Zofran Inj) 4 mg Q4H PRN IV PUSH 11/20/16 17:15 11/21/16 04:05 Metoclopramide HCl 10 mg 10 mg TID IV 11/20/16 18:00 11/20/16 17:35 (KCl 20 Meq Premix Inj) 100 ml @ 50 mls/hr BOLUS ONCE IV 11/21/16 07:15 11/21/16 09:14 11/21/16 07:43 Assessment and Plan Assessment and Plan POD #4 Left Open Radical Nephrectomy -clear liquid diet. 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 -D/C [place]. -Ambulate/IS -GI/DVT prophylaxis -appreciate Internship input. Mario Guzman MD November 21, 2016 08:03
[2016-11-21] MEDS: BISACODYL 10 MG SUPP RECTAL SCH ×2 (08:38→09:00)
[2016-11-21] MEDS: hydrALAZINE HCL 50 MG TAB PO SCH ×2 (08:38→20:41)
[2016-11-21] MEDS: ACETAMINOPHEN 1000 MG/100 ML VIAL IV SCH ×3 (08:38→20:40)
[2016-11-21] MEDS: PANTOPRAZOLE SOD 20 MG DELAYED RELEASE TAB PO SCH (08:38)
[2016-11-21] MEDS: METOCLOPRAMIDE HCL 10 MG/2 ML VIAL IV SCH ×3 (08:38→17:41)
[2016-11-21] MEDS: ESTRADIOL 1 MG TAB PO SCH (08:38)
[2016-11-21] MEDS: CITALOPRAM HYDROBROMIDE 20 MG TAB PO SCH (08:39)
[2016-11-21] MEDS: CARVEDILOL 12.5 MG TAB PO SCH ×2 (08:41→20:42)
[2016-11-21] MEDS: traMADol HCL 50 MG TAB PO PRN ×2 (17:41→18:16)
[2016-11-21] MEDS: LABETALOL HCL 100 MG/20 ML VIAL IV PRN (18:25)
[2016-11-21] MEDS: ATORVASTATIN 40 MG TAB PO SCH (20:41)
[2016-11-21] MEDS: clonazePAM 0.5 MG TAB PO PRN (21:47)
[2016-11-22] VITALS (10 sets, daily range): BP systolic 106–183; BP diastolic 55–91; PULSE 56–95; RESP 12–25; TEMP 96.2–98.3; O2SAT 93–100
[2016-11-22] MEDS: ACETAMINOPHEN 1000 MG/100 ML VIAL IV SCH ×4 (02:00→20:00)
[2016-11-22] MEDS: traMADol HCL 50 MG TAB PO PRN ×3 (03:43→17:59)
[2016-11-22] MEDS: CHOLESTYRAMINE 4 GM PACKET PO SCH ×2 (06:00→17:58)
[2016-11-22 06:01] LABS: POTASSIUM 3.4 MEQ/L (3.5-5.1)
[2016-11-22] MEDS: INSULIN ASPART SUPPLEMENTAL SCALE SQ SCH ×4 (06:23→20:34)
[2016-11-22] MEDS: ONDANSETRON HCL 4 MG/2 ML VIAL IV PUSH PRN (07:50)
[2016-11-22] MEDS: CITALOPRAM HYDROBROMIDE 20 MG TAB PO SCH (08:21)
[2016-11-22] MEDS: METOCLOPRAMIDE HCL 10 MG/2 ML VIAL IV SCH ×3 (08:21→17:58)
[2016-11-22] MEDS: ESTRADIOL 1 MG TAB PO SCH (08:23)
[2016-11-22] MEDS: PANTOPRAZOLE SOD 20 MG DELAYED RELEASE TAB PO SCH (08:24)
[2016-11-22] MEDS: BISACODYL 10 MG SUPP RECTAL SCH ×2 (08:24→09:34)
[2016-11-22] MEDS: hydrALAZINE HCL 50 MG TAB PO SCH ×2 (08:26→20:33)
[2016-11-22] MEDS: CARVEDILOL 12.5 MG TAB PO SCH ×2 (08:27→20:34)
--- NOTE | 2016-11-22 09:12 | HHI.CCPN ---
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 Postprocedure patient is admitted to ICU and critical care medicine is consulted for medical management. 11/18: Urine output acceptable. Stable hemodynamics. 11/19: Breathing comfortably, urine acceptable, remains well perfused. 11/20: Alert, breathing well. Urine output excellent, renal function good. Add hydralazine for hypertension, hold JAXON-I until creatinine improved for several days. 11/21: Urine output excellent. Replace K. BP control improved. 11/22: Breathing much improved. Creatine has stabilized close to expected baseline following nephrectomy. Objective Vital Signs Date Time Temp Pulse Resp B/P Pulse Ox O2 Delivery O2 Flow Rate FiO2 11/22/16 08:00 97.8 72 25 174/91 96 11/22/16 07:00 Nasal Cannula 2.00 Intake and Output 11/21/16 11/21/16 11/22/16 08:00 16:00 00:00 Intake Total 722 ml 512 ml 1417 ml Output Total 550 ml 350 ml Balance 172 ml 162 ml 1417 ml Result Diagram: 11/20/16 0440 11/22/16 0437 Objective Remarks GENERAL: Comfortable. SKIN: Warm and dry. NECK: Supple, trachea midline. Airway widely patent. CARDIOVASCULAR: Regular rate and rhythm without murmurs, gallops, or rubs. No JVD. RESPIRATORY: Breath sounds equal bilaterally. Comfortable pattern. No wheezes or crackles. GASTROINTESTINAL: Abdomen soft, nondistended. BS present. MUSCULOSKELETAL: No cyanosis, or edema. Well perfused. Warm. NEURO: Alert, O X 3, cooperative. A/P Assessment and Plan Status post radical left nephrectomy - Admit to ICU - BMP IN the morning - Strict I's and O's - IV fluid hydration at 75. Hypertension - Coreg - Hold JAXON inhibitor pending BMP. Restart any day. Type 2 diabetes mellitus - Insulin sliding scale - Hold glipizide while patient in the ICU Dyslipidemia - Atorvastatin Anxiety - Clonazepam when necessary Depressions - Celexa Arthritis - Meloxicam - We will hold while in the unit GERD - Protonix DVT GI prophylaxis - Teds SCDs, pharmacal prophylaxis per surgeon - Protonix Overall impression: Doing well s/p nephrectomy. Ambulate. Add anti-hypertensive meds -> done. Olayinka Casillas MD November 22, 2016 09:12
[2016-11-22] MEDS: DEXT 5%-NACL 0.9% 1000 ML INJ 1,000 ML IV SCH (12:25)
[2016-11-22] MEDS: LABETALOL HCL 100 MG/20 ML VIAL IV PRN (12:41)
[2016-11-22] MEDS ORDERED: ONDANSETRON HCL 4 MG/2 ML VIAL IV PUSH PRN (17:30)
[2016-11-22] MEDS ORDERED: NIFEdipine 10 MG CAP PRN (17:45)
[2016-11-22] MEDS ORDERED: ONDANSETRON ODT 4 MG TAB PO PRN (18:30)
[2016-11-22] MEDS: ATORVASTATIN 40 MG TAB PO SCH (20:34)
[2016-11-22] MEDS: clonazePAM 0.5 MG TAB PO PRN (23:34)
[2016-11-23] VITALS: BP 139/77; PULSE 80; RESP 18; TEMP 97.9; O2SAT 96
[2016-11-23] MEDS: ACETAMINOPHEN 1000 MG/100 ML VIAL IV SCH ×2 (02:00→08:00)
[2016-11-23] MEDS: traMADol HCL 50 MG TAB PO PRN ×2 (05:25→10:23)
[2016-11-23] MEDS: INSULIN ASPART SUPPLEMENTAL SCALE SQ SCH (05:26)
[2016-11-23] MEDS: CHOLESTYRAMINE 4 GM PACKET PO SCH (05:26)
[2016-11-23 08:00] VITALS: BP 181/88; PULSE 78; RESP 18; TEMP 97.6; O2SAT 93
[2016-11-23] MEDS ORDERED: POTASSIUM CHLORIDE 10 MEQ CAP PO SCH (08:30)
[2016-11-23] MEDS: BISACODYL 10 MG SUPP RECTAL SCH (09:00)
[2016-11-23] MEDS: METOCLOPRAMIDE HCL 10 MG/2 ML VIAL IV SCH (09:00)
[2016-11-23] MEDS: CITALOPRAM HYDROBROMIDE 20 MG TAB PO SCH (10:15)
[2016-11-23] MEDS: ESTRADIOL 1 MG TAB PO SCH (10:15)
[2016-11-23] MEDS: PANTOPRAZOLE SOD 20 MG DELAYED RELEASE TAB PO SCH (10:15)
[2016-11-23] MEDS: CARVEDILOL 12.5 MG TAB PO SCH (10:15)
[2016-11-23] MEDS: hydrALAZINE HCL 50 MG TAB PO SCH (10:15)
--- NOTE | 2016-11-28 15:29 | MD ---
cc: KATIE QIU MD ADMISSION DATE: 11/17/2016 DISCHARGE DATE: 11/23/2016 REASON FOR ADMISSION: Preparation for a left radical nephrectomy for carcinoma. CURRENT HISTORY: This young female presented to our office secondary to a mass being found while being worked up for other issues. Options were discussed because of her size, the nature of the size of the tumor and the tumor thrombus. She was not felt to be a suitable candidate for less invasive procedures such as the robot or a laparoscopic approach. It was felt that she would be best tended to with an open procedure. Therefore she was brought to the hospital on 11/17/2016 and underwent an open left radical nephrectomy by Dr. Qiu and Dr. Guzman. Please see that operative note for the details. Her postoperative experience was rather on standard. We had the help of Dr. Abhay Casillas, the manager car. Her bowels were little slow to kick back into gear but gradually did. She tolerated a clear liquid diet 48 hours ago and 24 hours ago and she was advanced then to a regular diet. Her bowels have been moving since. Her wound has remained dry. The [place] catheter has been out. She has been saturating reasonably well without oxygen. Therefore she is discharged. She will not require any additional medication at home and she will resume her home medications. She has a follow up appointment for a wound check and for the staple removal in about a weeks time in the offices of [facility] to see Dr. Qiu. MD LUCY Vidal/CELESTE /1:34 PM /3:18 PM
== END 2016-11-23 11:41 | disposition home or self-care (01) | DRG 657 ==
LOC: HSDI 11-17 11:13 → HPAC 11-17 22:41 → N03B 11-17 23:43 → N07A 11-22 14:09
PROC: 0TT10ZZ Resection of Left Kidney, Open Approach (ICD-10-PCS; principal; 2016-11-17 13:43)
DX: D41.02 Neoplasm of uncertain behavior of left kidney (principal); K56.7 Ileus, unspecified; R51 Headache; I10 Essential (primary) hypertension; E66.01 Morbid (severe) obesity due to excess calories; F41.9 Anxiety disorder, unspecified; E78.5 Hyperlipidemia, unspecified; K21.9 Gastro-esophageal reflux disease without esophagitis; M19.90 Unspecified osteoarthritis, unspecified site; E11.9 Type 2 diabetes mellitus without complications; F32.9 Major depressive disorder, single episode, unspecified; Z79.84 Long term (current) use of oral hypoglycemic drugs
CPT/HCPCS: 76937; 80048; 80053; 82948; 83735; 84100; 84132; 84155; 85014; 85018; 85025; 86850; 86900; 86901; 86920; 87641; 88309; 90686; 90732; 94150; J0131; J0690; J1170; J1580; J1815; J2250; J2270; J2370; J2405; J2710; J2765; J3010; J3480; J7030; J7042; J7120; Q2038

== ENCOUNTER 2017-02-02 15:13 | Observation (INO) | payer OTHER ==
[~2017-02-02] VITALS: Ht 162.6 cm; Wt 103.0 kg
[~2017-02-02 15:13] MED LIST: ATOR40TA16 PO; CARV25TA PO; CHOL4POW4 PO; CITA10TA4 PO; CLON0.5T PO; DICY10CA12 PO; ESTR1TAB PO; GLIP5TAB8 PO; LISI10TA3 PO; MELO-1 PO; PANT20TA2 PO
[2017-02-02 15:18] VITALS: BP 206/98; PULSE 76; RESP 16; TEMP 96.2; O2SAT 99
[2017-02-02] MEDS ORDERED: SODIUM CHLORIDE 0.9% FLUSH 5 ML FLUSH IV FLUSH PRN (16:15)
--- NOTE | 2017-02-02 16:39 | PD ---
HPI Chief Complaint: Neuro Symptoms/ Deficits Time Seen by Provider: 16:32 Travel History International Travel<30 days: No Contact w/Intl Traveler<30days: No Traveled to known affect area: No History of Present Illness HPI Patient is a 61-year-old female presenting to emergency for evaluation of altered mental status. Patient states after lunch she started to feel confused , like she was having an out of body experience. 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 Coworker states that she could not express herself and she had an unsteady gait. Patient states she started to cry for no reason and her lips felt numb. She denies any weakness in her extremities, facial drooping. She further denies any nausea, vomiting, chest pain, shortness of breath, headache. The symptoms lasted for approximately one hour. Patient left radical nephrectomy in November, since that time she's had episodes where she felt off. She attributed this to a low blood sugar. Patient had similar symptoms yesterday, she had not eaten in 6 hours and her blood sugar was assessed at 53. At that time she did not have any speech issues or confusion. Patient's past medical history is significant for hypertension, anxiety, hyperlipidemia, GERD, depression, arthritis, type 2 diabetes, hormone replacement therapy. PFSH Past Medical History Arthritis: Yes Anxiety: Yes Cancer: Yes (KIDNEY CA LEFT) Cardiovascular Problems: No High Cholesterol: Yes Diabetes: Yes Endocrine: Yes Genitourinary: No Hepatitis: No Hiatal Hernia: Yes Immune Disorder: Yes Medical other: Yes (hrt) Musculoskeletal: No Neurologic: No Psychiatric: No Reproductive: No Respiratory: No Immunizations Current: No Thyroid Disease: No ?: Not Past Surgical History AICD: No Hysterectomy: Yes Joint Replacement: Yes (R HIP) Pacemaker: No Other Surgery: Yes (left radical nephrectomy) Social History Tobacco Use: No Substance Use: Yes (sober for 15 years) Allergies-Medications (Allergen,Severity, Reaction): Coded Allergies: Codeine (Verified Allergy, Severe, Nausea/Vomiting, 11/16/16) Reported Meds & Prescriptions Reported Meds & Active Scripts Active Reported Carvedilol 25 Mg Tab 25 Mg PO BID Cholestyramine 4 Gm/Pkt Powd 4 Gm PO BID 1 packet contains 4 grams of cholestyramine. Dicyclomine (Dicyclomine HCl) 10 Mg Cap 10 Mg PO BID PRN Atorvastatin (Atorvastatin Calcium) 40 Mg Tab 40 Mg PO HS Lisinopril 10 Mg Tab 10 Mg PO DAILY Glipizide 5 Mg Tab 5 Mg PO DAILY Take 30 minutes before a meal Citalopram (Citalopram Hydrobromide) 10 Mg Tab 10 Mg PO DAILY Meloxicam 15 Mg Tab 15 Mg PO DAILY Estradiol 1 Mg Tab 1 Mg PO DAILY Pantoprazole (Pantoprazole Sodium) 20 Mg Tab 20 Mg PO DAILY Review of Systems Except as stated in HPI: all other systems reviewed are Neg Eyes: No: Blurred Vision, Visual changes HENT: No: Headaches, Lightheadedness Cardiovascular: No: Chest Pain or Discomfort Respiratory: No: Shortness of Breath Gastrointestinal: No: Nausea, Vomiting, Abdominal Pain Musculoskeletal: No: Myalgias Neurologic: Positive: Change in Mentation, Sensory Disturbance, Other ( expressive aphasia), No: Focal Abnormalities Physical Exam Narrative GENERAL: Obese, well-developed, alert female. Resting in no acute distress. SKIN: Warm and dry. HEAD: Atraumatic. Normocephalic. EYES: Pupils equal and round. No scleral icterus. No injection or drainage. ENT: No nasal bleeding or discharge. Mucous membranes pink and moist. NECK: Trachea midline. No JVD. CARDIOVASCULAR: Regular rate and rhythm. RESPIRATORY: No accessory muscle use. Clear to auscultation. Breath sounds equal bilaterally. GASTROINTESTINAL: Abdomen soft, non-tender, nondistended. Hepatic and splenic margins not palpable. MUSCULOSKELETAL: Extremities without clubbing, cyanosis, or edema. No obvious deformities. NEUROLOGICAL: Awake and alert. No obvious cranial nerve deficits. Motor grossly within normal limits. Five out of 5 muscle strength in the arms and legs. Normal speech. No focal deficits noted. PSYCHIATRIC: Appropriate mood and affect; insight and judgment normal. Data Data Last Documented VS Vital Signs Date Time Temp Pulse Resp B/P Pulse Ox O2 Delivery O2 Flow Rate FiO2 02/02/17 18:41 98.3 69 16 152/78 99 Room Air Orders Complete Blood Count With Diff (02/02/17 16:05) Comprehensive Metabolic Panel (02/02/17 16:05) Prothrombin Time / Inr (Pt) (02/02/17 16:05) Act Partial Throm Time (Ptt) (02/02/17 16:05) Troponin I (02/02/17 16:05) Urinalysis - C+S If Indicated (02/02/17 16:05) Ct Brain W/O Iv Contrast(Rout) (02/02/17 16:05) Blood Glucose (02/02/17 16:05) Ecg Monitoring (02/02/17 16:05) Iv Access Insert/Monitor (02/02/17 16:05) Oximetry (02/02/17 16:05) Sodium Chloride 0.9% Flush (Ns Flush) (02/02/17 16:15) Electrocardiogram (02/02/17 ) Ckmb (Isoenzyme) Profile (02/02/17 16:45) Urine Culture (02/02/17 16:45) Admit Order (Ed Use Only) (02/02/17 19:20) Ceftriaxone Inj (Rocephin Inj) (02/02/17 19:30) Labs Laboratory Tests Test 02/02/17 16:45 White Blood Count 7.6 TH/MM3 Red Blood Count 4.38 MIL/MM3 Hemoglobin 12.8 GM/DL Hematocrit 37.9 % Mean Corpuscular Volume 86.6 FL Mean Corpuscular Hemoglobin 29.3 PG Mean Corpuscular Hemoglobin 33.8 % Concent Red Cell Distribution Width 17.5 % Platelet Count 311 TH/MM3 Mean Platelet Volume 6.7 FL Neutrophils (%) (Auto) 69.8 % Lymphocytes (%) (Auto) 21.4 % Monocytes (%) (Auto) 6.0 % Eosinophils (%) (Auto) 1.9 % Basophils (%) (Auto) 0.9 % Neutrophils # (Auto) 5.3 TH/MM3 Lymphocytes # (Auto) 1.6 TH/MM3 Monocytes # (Auto) 0.5 TH/MM3 Eosinophils # (Auto) 0.1 TH/MM3 Basophils # (Auto) 0.1 TH/MM3 CBC Comment DIFF FINAL Differential Comment Prothrombin Time 10.4 SEC Prothromb Time International 0.9 RATIO Ratio Activated Partial 29.0 SEC Thromboplast Time Urine Color YELLOW Urine Turbidity HAZY Urine pH 5.0 Urine Specific [place] 1.013 Urine Protein NEG mg/dL Urine Glucose (UA) NEG mg/dL Urine Ketones NEG mg/dL Urine Occult Blood TRACE Urine Nitrite POS Urine Bilirubin NEG Urine Urobilinogen LESS THAN 2.0 MG/DL Urine Leukocyte Esterase NEG Urine RBC 1 /hpf Urine WBC 2 /hpf Urine Squamous Epithelial 6 /hpf Cells Urine Bacteria MANY /hpf Urine Mucus FEW /lpf Microscopic Urinalysis Comment CATH-CULTURE IND Sodium Level 138 MEQ/L Potassium Level 4.8 MEQ/L Chloride Level 107 MEQ/L Carbon Dioxide Level 25.0 MEQ/L Anion Gap 6 MEQ/L Blood Urea Nitrogen 29 MG/DL Creatinine 1.34 MG/DL Estimat Glomerular Filtration 40 ML/MIN Rate Random Glucose 94 MG/DL Calcium Level 8.1 MG/DL Total Bilirubin 0.4 MG/DL Aspartate Amino Transf 25 U/L (AST/SGOT) Alanine Aminotransferase 28 U/L (ALT/SGPT) Alkaline Phosphatase 125 U/L Total Creatine Kinase 83 U/L Troponin I LESS THAN 0.02 NG/ML Total Protein 7.6 GM/DL Albumin 3.5 GM/DL [facility] Medical Decision Making Medical Screen Exam Complete: Yes Emergency Medical Condition: Yes Medical Record Reviewed: Yes Interpretation(s) Last Impressions Head CT 02/02/17 1605 Signed Impressions: Service Date/Time: Thursday, February 02, 2017 18:21 - CONCLUSION: Normal examination. Danet Elder MD Laboratory Tests Test 02/02/17 16:45 White Blood Count 7.6 TH/MM3 Red Blood Count 4.38 MIL/MM3 Hemoglobin 12.8 GM/DL Hematocrit 37.9 % Mean Corpuscular Volume 86.6 FL Mean Corpuscular Hemoglobin 29.3 PG Mean Corpuscular Hemoglobin 33.8 % Concent Red Cell Distribution Width 17.5 % Platelet Count 311 TH/MM3 Mean Platelet Volume 6.7 FL Neutrophils (%) (Auto) 69.8 % Lymphocytes (%) (Auto) 21.4 % Monocytes (%) (Auto) 6.0 % Eosinophils (%) (Auto) 1.9 % Basophils (%) (Auto) 0.9 % Neutrophils # (Auto) 5.3 TH/MM3 Lymphocytes # (Auto) 1.6 TH/MM3 Monocytes # (Auto) 0.5 TH/MM3 Eosinophils # (Auto) 0.1 TH/MM3 Basophils # (Auto) 0.1 TH/MM3 CBC Comment DIFF FINAL Differential Comment Prothrombin Time 10.4 SEC Prothromb Time International 0.9 RATIO Ratio Activated Partial 29.0 SEC Thromboplast Time Urine Color YELLOW Urine Turbidity HAZY Urine pH 5.0 Urine Specific [place] 1.013 Urine Protein NEG mg/dL Urine Glucose (UA) NEG mg/dL Urine Ketones NEG mg/dL Urine Occult Blood TRACE Urine Nitrite POS Urine Bilirubin NEG Urine Urobilinogen LESS THAN 2.0 MG/DL Urine Leukocyte Esterase NEG Urine RBC 1 /hpf Urine WBC 2 /hpf Urine Squamous Epithelial 6 /hpf Cells Urine Bacteria MANY /hpf Urine Mucus FEW /lpf Microscopic Urinalysis Comment CATH-CULTURE IND Sodium Level 138 MEQ/L Potassium Level 4.8 MEQ/L Chloride Level 107 MEQ/L Carbon Dioxide Level 25.0 MEQ/L Anion Gap 6 MEQ/L Blood Urea Nitrogen 29 MG/DL Creatinine 1.34 MG/DL Estimat Glomerular Filtration 40 ML/MIN Rate Random Glucose 94 MG/DL Calcium Level 8.1 MG/DL Total Bilirubin 0.4 MG/DL Aspartate Amino Transf 25 U/L (AST/SGOT) Alanine Aminotransferase 28 U/L (ALT/SGPT) Alkaline Phosphatase 125 U/L Total Creatine Kinase 83 U/L Troponin I LESS THAN 0.02 NG/ML Total Protein 7.6 GM/DL Albumin 3.5 GM/DL Vital Signs Date Time Temp Pulse Resp B/P Pulse Ox O2 Delivery O2 Flow Rate FiO2 02/02/17 15:18 96.2 76 16 206/98 99 Room Air Differential Diagnosis TIA versus anxiety versus metabolic abnormality versus hypoglycemia versus other Narrative Course Patient is a 61 year old female presented to emergency department for evaluation of neurological symptoms. Patient had a one-hour episode of what appeared to be expressive aphasia, gait abnormality, confusion. Patient has no focal deficits now. In the differential would be TIA, panic disorder, metabolic abnormality. Labs and imaging ordered and pending. His vital signs are stable. CT of the brain shows no acute abnormality CBC is unremarkable, chemistry with elevated BUN and creatinine 29 and 1.34. Cardiac enzymes are negative. Urinalysis shows a nitrite positive urinary tract infection EKG shows normal sinus rhythm Rocephin 2 g IV 1 dose ordered. Patient be placed under observation. Discussed with Dr. Kevin who accepted admission. Diagnosis Primary Impression: UTI (urinary tract infection) Qualified Code: N39.0 - Urinary tract infection with hematuria, site unspecified Additional Impressions: Neurological symptoms Acute renal insufficiency Admitting Information Admitting Physician Requests: Observation Condition: Stable Nasrin Rowe [facility] Feb 02, 2017 16:39
[2017-02-02 17:05] LABS: AUTOMATED NEUTROPHIL # 5.3 TH/MM3 (1.8-7.7); BASOPHIL # 0.1 TH/MM3 (0-0.2); BASOPHIL % 0.9 % (0.0-2.0); EOSINOPHIL # 0.1 TH/MM3 (0-0.4); EOSINOPHIL % 1.9 % (0.0-4.0); HEMATOCRIT 37.9 % (35.0-46.0); HEMO FLAGS DIFF FINAL; LYMPH % 21.4 % (9.0-44.0); LYMPHOCYTE # 1.6 TH/MM3 (1.0-4.8); MEAN CELL VOLUME 86.6 FL (80.0-100.0); MEAN CORPUSCULAR HEMOGLOBIN 29.3 PG (27.0-34.0); MEAN CORPUSCULAR HGB CONC 33.8 % (32.0-36.0); NEUT % 69.8 % (16.0-70.0); PLATELET COUNT 311 TH/MM3 (150-450); RED BLOOD COUNT 4.38 MIL/MM3 (4.00-5.30); RED CELL DISTRIBUTION WIDTH 17.5 % (11.6-17.2); WHITE BLOOD COUNT 7.6 TH/MM3 (4.0-11.0)
[2017-02-02 17:06] LABS: BACTERIA, URINE MANY /hpf; BLOOD, URINE TRACE (NEG); COMMENT (UR) CATH-CULTURE IND; CULTURE IF INDICATED CATH CULTURE IND; GLUCOSE,URINE NEG (NEG); KETONE, URINE NEG (NEG); MUCUS URINE FEW /lpf (OCC); NITRITE,URINE POS (NEG); SQUAMOUS EPITHELIAL CELL URINE 6 /hpf (0-5); URINE COLOR YELLOW (YELLW/STRAW)
[2017-02-02 17:17] LABS: INTERNATIONAL NORMALIZED RATIO 0.9 RATIO; PROTHROMBIN TIME - PATIENT 10.4 SEC (9.8-11.6)
[2017-02-02 17:48] LABS: ALKALINE PHOSPHATASE 125 U/L (45-117); ANION GAP 6 MEQ/L (5-15); AST (GOT) 25 U/L (15-37); BLOOD UREA NITROGEN 29 MG/DL (7-18); CHLORIDE 107 MEQ/L (98-107); GLOMERULAR FILTRATION RATE 40 ML/MIN (>89); SODIUM (NA) 138 MEQ/L (136-145); TOTAL BILIRUBIN ADULT 0.4 MG/DL (0.2-1.0)
[2017-02-02 17:49] LABS: CREATINE KINASE 83 U/L (26-192); POTASSIUM 4.8 MEQ/L (3.5-5.1)
[2017-02-02 18:02] LABS: ALT (GPT) 28 U/L (10-53)
--- NOTE | 2017-02-02 18:34 | RADRPT ---
EXAM DATE/TIME: 02/02/2017 18:21 [place] COMPARISON: No previous studies available for comparison. INDICATIONS : Altered mental status. RADIATION DOSE: 29.00 CTDIvol (mGy) MEDICAL HISTORY : Hypertension. kidney cancer SURGICAL HISTORY : Appendectomy. Hysterectomy.C7 fusion ENCOUNTER: Initial ACUITY: 1 day PAIN SCALE: 0/10 LOCATION: cranial TECHNIQUE: Multiple contiguous axial images were obtained of the head. Using automated exposure control and adj ustment of the mA and/or kV according to patient size, radiation dose was kept as low as reasonably a chievable to obtain optimal diagnostic quality images. DICOM format image data is available electro nically for review and comparison. FINDINGS: CEREBRUM: The ventricles are normal for age. No evidence of midline shift, mass lesion, hemorrhage or acute in farction. No extra-axial fluid collections are seen. POSTERIOR FOSSA: The cerebellum and brainstem are intact. The 4th ventricle is midline. The cerebellopontine angle i s unremarkable. EXTRACRANIAL: The visualized portion of the orbits is intact. SKULL: The calvaria is intact. No evidence of skull fracture. CONCLUSION: Normal examination. Dante Elder MD on February 02, 2017 at 18:30 Board Certified Radiologist. This report was verified electronically.
[2017-02-02 18:41] VITALS: BP 152/78; PULSE 69; RESP 16; TEMP 98.3; O2SAT 99
[2017-02-02] MEDS ORDERED: cefTRIAXone INJ 2,000 MG in SODIUM CHLORIDE 0.9% INJ 100 ML IV ONE (19:30)
[2017-02-02 19:36] VITALS: BP 157/76; PULSE 72; RESP 16; O2SAT 99
[2017-02-02] MEDS ORDERED: DICYCLOMINE HCL 10 MG CAP PO PRN (21:00)
[2017-02-02] MEDS: CHOLESTYRAMINE 4 GM PACKET PO SCH (21:00)
[2017-02-02] MEDS ORDERED: MAGNESIUM HYDROXIDE SUSP 30 ML CUP PO PRN (21:00)
[2017-02-02] MEDS ORDERED: NALOXONE HCL 0.4 MG/ML AMP IV PRN (21:00)
[2017-02-02] MEDS ORDERED: BISACODYL 10 MG SUPP RECTAL PRN (21:00)
[2017-02-02] MEDS ORDERED: ACETAMINOPHEN 325 MG TAB PO PRN (21:00)
[2017-02-02] MEDS ORDERED: SENNOSIDES 8.6 MG TAB PO PRN (21:00)
[2017-02-02] MEDS ORDERED: LACTULOSE SYRUP 20 GM/30 ML CUP PO PRN (21:00)
[2017-02-02] MEDS: INSULIN ASPART SUPPLEMENTAL SCALE SQ SCH (21:00)
[2017-02-02] MEDS ORDERED: ATORVASTATIN 40 MG TAB PO SCH (21:00)
[2017-02-02] MEDS ORDERED: SODIUM CHLORIDE 0.9% FLUSH 10 ML FLUSH IV FLUSH PRN (21:00)
--- NOTE | 2017-02-02 21:10 | HHI.HP ---
HPI Service [facility] Hospitalists Primary Care Physician Non-Staff Admission Diagnosis NEURO SYMPTOMS, UTI Chief Complaint: disorientation today Travel History International Travel<30 Days: No Contact w/Intl Traveler <30 Da: No Traveled to Known Affected Are: No History of Present Illness Patient is a 61-year-old female presenting to emergency for evaluation of altered mental status. Patient states after lunch she started to feel confused , like she was having an out of body experience. 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 Coworker states that she could not express herself and she had an unsteady gait. Patient states she started to cry for no reason and her lips felt numb. She denies any weakness in her extremities, facial drooping. She further denies any nausea, vomiting, chest pain, shortness of breath, headache. The symptoms lasted for approximately one hour. Patient left radical nephrectomy in November, since that time she's had episodes where she felt off. She attributed this to a low blood sugar. Patient has history of diabetes. Patient had similar symptoms yesterday, she had not eaten in 6 hours and her blood sugar was assessed at 53. Also patient did not have anything to drink. At that time she did not have any speech issues or confusion. Patient' s past medical history is significant for hypertension, anxiety, hyperlipidemia , GERD, depression, arthritis, type 2 diabetes, hormone replacement therapy. Presented to er work up negative ,will admit and follow glucose ,this could have been metabolic related to low glucose. Review of Systems ROS Limitations: Altered Mental Status Neurologic: COMPLAINS OF: Speech Problems, Poor Balance Past Family Social History Past Medical History CA left kidney,hiatal hernia,hyperlipidemia,dm,djd,depression,microscopic colitis,hypertension Past Surgical History left nephrectomy,hysterectomy rt hip Reported Medications Carvedilol 25 Mg Tab 25 Mg PO BID Cholestyramine 4 Gm/Pkt Powd 4 Gm PO BID 1 packet contains 4 grams of cholestyramine. Dicyclomine (Dicyclomine HCl) 10 Mg Cap 10 Mg PO BID PRN Atorvastatin (Atorvastatin Calcium) 40 Mg Tab 40 Mg PO HS Lisinopril 10 Mg Tab 10 Mg PO DAILY Glipizide 5 Mg Tab 5 Mg PO DAILY Take 30 minutes before a meal Citalopram (Citalopram Hydrobromide) 10 Mg Tab 10 Mg PO DAILY Meloxicam 15 Mg Tab 15 Mg PO DAILY Estradiol 1 Mg Tab 1 Mg PO DAILY Pantoprazole (Pantoprazole Sodium) 20 Mg Tab 20 Mg PO DAILY Allergies: Coded Allergies: Codeine (Verified Allergy, Severe, Nausea/Vomiting, 11/16/16) Social History non smoker no alcohol for over 15 years Physical Exam Vital Signs Vital Signs Date Time Temp Pulse Resp B/P Pulse Ox O2 Delivery O2 Flow Rate FiO2 02/02/17 19:36 72 16 157/76 99 Room Air 02/02/17 19:31 76 17 97 Room Air 02/02/17 18:41 98.3 69 16 152/78 99 Room Air 02/02/17 15:18 96.2 76 16 206/98 99 Room Air Physical Exam GENERAL: This is a well-nourished, well-developed patient, in no apparent distress. SKIN: No rashes, ecchymoses or lesions. Cool and dry. HEAD: Atraumatic. Normocephalic. No temporal or scalp tenderness. EYES: Pupils equal round and reactive. Extraocular motions intact. No scleral icterus. No injection or drainage. ENT: Nose without bleeding, purulent drainage or septal hematoma. Throat without erythema, tonsillar hypertrophy or exudate. Uvula midline. Airway patent. NECK: Trachea midline. No JVD or lymphadenopathy. Supple, nontender, no meningeal signs. CARDIOVASCULAR: Regular rate and rhythm without murmurs, gallops, or rubs. RESPIRATORY: Clear to auscultation. Breath sounds equal bilaterally. No wheezes , rales, or rhonchi. GASTROINTESTINAL: Abdomen soft, non-tender, nondistended. No hepato-splenomegaly , or palpable masses. No guarding. MUSCULOSKELETAL: Extremities without clubbing, cyanosis, or edema. No joint tenderness, effusion, or edema noted. No calf tenderness. Negative Homans sign bilaterally. NEUROLOGICAL: Awake and alert. Cranial nerves II through XII intact. Motor and sensory grossly within normal limits. Five out of 5 muscle strength in all muscle groups. Normal speech. Laboratory Laboratory Tests Test 02/02/17 16:45 White Blood Count 7.6 Red Blood Count 4.38 Hemoglobin 12.8 Hematocrit 37.9 Mean Corpuscular Volume 86.6 Mean Corpuscular Hemoglobin 29.3 Mean Corpuscular Hemoglobin 33.8 Concent Red Cell Distribution Width 17.5 Platelet Count 311 Mean Platelet Volume 6.7 Neutrophils (%) (Auto) 69.8 Lymphocytes (%) (Auto) 21.4 Monocytes (%) (Auto) 6.0 Eosinophils (%) (Auto) 1.9 Basophils (%) (Auto) 0.9 Neutrophils # (Auto) 5.3 Lymphocytes # (Auto) 1.6 Monocytes # (Auto) 0.5 Eosinophils # (Auto) 0.1 Basophils # (Auto) 0.1 CBC Comment DIFF FINAL Differential Comment Prothrombin Time 10.4 Prothromb Time International 0.9 Ratio Activated Partial 29.0 Thromboplast Time Urine Color YELLOW Urine Turbidity HAZY Urine pH 5.0 Urine Specific Sigel 1.013 Urine Protein NEG Urine Glucose (UA) NEG Urine Ketones NEG Urine Occult Blood TRACE Urine Nitrite POS Urine Bilirubin NEG Urine Urobilinogen LESS THAN 2.0 Urine Leukocyte Esterase NEG Urine RBC 1 Urine WBC 2 Urine Squamous Epithelial 6 Cells Urine Bacteria MANY Urine Mucus FEW Microscopic Urinalysis Comment CATH-CULTURE IND Sodium Level 138 Potassium Level 4.8 Chloride Level 107 Carbon Dioxide Level 25.0 Anion Gap 6 Blood Urea Nitrogen 29 Creatinine 1.34 Estimat Glomerular Filtration 40 Rate Random Glucose 94 Calcium Level 8.1 Total Bilirubin 0.4 Aspartate Amino Transf 25 (AST/SGOT) Alanine Aminotransferase 28 (ALT/SGPT) Alkaline Phosphatase 125 Total Creatine Kinase 83 Troponin I LESS THAN 0.02 Total Protein 7.6 Albumin 3.5 Date/Time Procedure Status Source Growth 02/02/17 16:45 Urine Culture Received Urine Catheterized Urine Pending Result Diagram: 02/02/17 1645 02/02/17 1645 Imaging Last [address] 02/02/17 1605 Signed Impressions: Service Date/Time: Thursday, February 02, 2017 18:21 - CONCLUSION: Normal examination. Dante Elder MD Course in er found to have UTI and started on rocephin IV Assessment and Plan Problem List: (1) Neurological symptoms Status: Acute Plan: may be related to hypoglycemia will monitor also will get MRI brain and neuro checks (2) Diabetes Status: Chronic Plan: for now continue med accucheck q 6h coverage as necessary (3) UTI (urinary tract infection) Status: Acute Plan: continue rocephin IV (4) Acute renal insufficiency Status: Chronic Plan: recheck labs am Assessment and Plan further plan as case progresses Code Status full Discussed Condition With patient Problem Qualifiers (1) Diabetes: (2) UTI (urinary tract infection): Qualified Code: N39.0 - Urinary tract infection with hematuria, site unspecified Sundar Kevin MD Feb 02, 2017 21:10
[2017-02-02] MEDS ORDERED: PILL SPLITTER OTHER PRN (21:15)
[2017-02-02] MEDS ORDERED: GLUCAGON 1 MG/ML VIAL OTHER PRN (22:00)
[2017-02-02] MEDS ORDERED: DEXTROSE 50% IN WATER 50 ML VIAL(D50) IV PUSH PRN (22:00)
[2017-02-02] MEDS: SODIUM CHLORIDE 0.9% FLUSH 10 ML FLUSH IV FLUSH SCH (22:45)
[2017-02-02] MEDS: CARVEDILOL 12.5 MG TAB PO SCH (22:45)
[2017-02-02] MEDS: DOCUSATE SODIUM 50 MG/SENNA 8.6 MG TAB PO SCH (22:45)
[2017-02-02 23:56] VITALS: BP 125/73; PULSE 73; RESP 18; TEMP 98.1; O2SAT 95
[2017-02-03 00:14] VITALS: PULSE 81
[2017-02-03 04:08] VITALS: PULSE 64
[2017-02-03 05:51] VITALS: BP 112/66; PULSE 67; RESP 18; TEMP 98.1; O2SAT 96
[2017-02-03 06:05] LABS: ANION GAP 10 MEQ/L (5-15); BLOOD UREA NITROGEN 31 MG/DL (7-18); CHLORIDE 110 MEQ/L (98-107); GLOMERULAR FILTRATION RATE 41 ML/MIN (>89); POTASSIUM 4.6 MEQ/L (3.5-5.1); SODIUM (NA) 141 MEQ/L (136-145)
[2017-02-03 06:06] LABS: AUTOMATED NEUTROPHIL # 3.4 TH/MM3 (1.8-7.7); BASOPHIL # 0.1 TH/MM3 (0-0.2); EOSINOPHIL # 0.2 TH/MM3 (0-0.4); EOSINOPHIL % 2.8 % (0.0-4.0); HEMATOCRIT 34.4 % (35.0-46.0); LYMPH % 37.9 % (9.0-44.0); LYMPHOCYTE # 2.7 TH/MM3 (1.0-4.8); MEAN CELL VOLUME 86.7 FL (80.0-100.0); MEAN CORPUSCULAR HEMOGLOBIN 28.3 PG (27.0-34.0); MEAN CORPUSCULAR HGB CONC 32.6 % (32.0-36.0); MONO % 10.1 % (0.0-8.0); NEUT % 48.2 % (16.0-70.0); PLATELET COUNT 272 TH/MM3 (150-450); RED BLOOD COUNT 3.97 MIL/MM3 (4.00-5.30); RED CELL DISTRIBUTION WIDTH 17.4 % (11.6-17.2); WHITE BLOOD COUNT 7.1 TH/MM3 (4.0-11.0)
[2017-02-03] MEDS: INSULIN ASPART SUPPLEMENTAL SCALE SQ SCH ×2 (06:10→11:00)
[2017-02-03 06:14] LABS: HEMO FLAGS AUTO DIFF
[2017-02-03] MEDS: CHOLESTYRAMINE 4 GM PACKET PO SCH (07:32)
[2017-02-03 07:43] VITALS: BP 161/86; PULSE 64; RESP 17; TEMP 98.4; O2SAT 96
[2017-02-03] MEDS ORDERED: glipiZIDE 5 MG TAB PO SCH (08:00)
[2017-02-03] MEDS: SODIUM CHLORIDE 0.9% FLUSH 10 ML FLUSH IV FLUSH SCH (08:58)
[2017-02-03 08:59] VITALS: PULSE 67
[2017-02-03] MEDS: DOCUSATE SODIUM 50 MG/SENNA 8.6 MG TAB PO SCH (09:00)
[2017-02-03] MEDS ORDERED: ESTRADIOL 1 MG TAB PO SCH (09:00)
[2017-02-03] MEDS ORDERED: CITALOPRAM HYDROBROMIDE 20 MG TAB PO SCH (09:00)
[2017-02-03] MEDS ORDERED: PANTOPRAZOLE SOD 20 MG DELAYED RELEASE TAB PO SCH (09:00)
[2017-02-03] MEDS ORDERED: MELOXICAM 15 MG TAB PO SCH (09:00)
[2017-02-03] MEDS ORDERED: LISINOPRIL 10 MG TAB PO SCH (09:00)
[2017-02-03] MEDS: CARVEDILOL 12.5 MG TAB PO SCH (09:03)
[2017-02-03 09:20] LABS: BASOPHILS 1 % (0-2); EOSINOPHILS 1 % (0-4); NEUTROPHIL # MANUAL DIFF 3.8 TH/MM3 (1.8-7.7); POLYS (SEG NEUTROPHILS) 53 % (16-70); WBC DIFF SAMPLE 100
[2017-02-03 09:23] LABS: PLATELET ESTIMATE SMEAR NORMAL (NORMAL); PLATELET MORPHOLOGY NORMAL (NORMAL); SCAN/DIFF FINAL DIFF MANUAL
--- NOTE | 2017-02-03 09:37 | EKG ---
Date Performed: 02/02/2017 Time Performed: 16:43:23 PTAGE: 61 years EKG: Sinus rhythm NORMAL ECG NO PREVIOUS TRACING DOCTOR: Caleb Bond Interpretating Date/Time 02/03/2017 09:35:55
[2017-02-03 12:04] VITALS: BP 159/79; PULSE 67; RESP 20; TEMP 97.8; O2SAT 97
[2017-02-03] MEDS ORDERED: GADODIAMIDE PF 287 MG/ML 20 ML VIAL (for RAD MRI) IV ONE (14:13)
--- NOTE | 2017-02-03 14:36 | RADRPT ---
EXAM DATE/TIME: 02/03/2017 13:54 [facility] COMPARISON: No previous studies available for comparison. INDICATIONS : Dysphasia. CONTRAST: 20 cc Omniscan (gadodiamide) IV MEDICAL HISTORY : Diabetes mellitus type 2. Hypertension. Kidney mass SURGICAL HISTORY : Hysterectomy. Appendectomy. Fusion, cervical. kidney removed, rt hip replacement ENCOUNTER: Subsequent ACUITY: 2 day PAIN SCORE: 0/10 LOCATION: cranial TECHNIQUE: Multiplanar, multisequence MRI of the brain was performed both prior to and following the administrat ion of paramagnetic contrast. FINDINGS: CEREBRUM: The ventricles are normal for age. No evidence of midline shift, mass lesion, hemorrhage or acute in farction. No extraaxial fluid collections are seen. The pituitary gland and suprasellar cistern are normal in configuration. WHITE MATTER: Scattered foci of bright T2 significant signal abnormalities are seen in the white matter. POSTERIOR FOSSA: The cerebellum is intact. Scattered high signal in the brainstem. The 4th ventricle is midline. The c erebellopontine angle is unremarkable. The cerebellar tonsils are normal in position. DIFFUSION IMAGING: No focal areas of restricted diffusion are seen. No evidence of acute infarction. EXTRACRANIAL: The visualized portions of the orbits and paranasal sinuses are unremarkable. POST-CONTRAST: No abnormal areas of parenchymal or dural enhancement. No evidence of blood-brain barrier breakdown. CONCLUSION: 1. Chronic ischemic small vessel vasculopathy with similar changes in the brainstem. 2. No acute infarction. Christian Kilgore MD on February 03, 2017 at 14:30 Board Certified Radiologist. This report was verified electronically.
[2017-02-03] MEDS ORDERED: GLIP5TAB8 PO (15:12)
--- NOTE | 2017-02-03 15:21 | HHI.PR ---
Subjective Remarks No new complaints. Pt denies confusion. No limb weakness or difficulty with speech or swallow. Pt is eager for discharge to home. Objective Vitals Vital Signs Date Time Temp Pulse Resp B/P Pulse Ox O2 Delivery O2 Flow Rate FiO2 02/03/17 12:04 97.8 67 20 159/79 97 02/03/17 08:59 67 02/03/17 07:43 98.4 64 17 161/86 96 02/03/17 05:51 98.1 67 18 112/66 96 02/03/17 04:08 64 02/03/17 00:14 81 02/02/17 23:56 98.1 73 18 125/73 95 02/02/17 19:36 72 16 157/76 99 Room Air 02/02/17 19:31 76 17 97 Room Air 02/02/17 18:41 98.3 69 16 152/78 99 Room Air 02/02/17 15:18 96.2 76 16 206/98 99 Room Air 02/02/17 02/02/17 02/03/17 15:00 23:00 07:00 Intake Total 240 ml Balance 240 ml Intake Oral 240 ml Result Diagram: 02/03/17 0413 02/03/17 0413 Imaging Last Impressions Brain MRI 02/03/17 0600 Signed Impressions: Service Date/Time: Friday, February 03, 2017 13:54 - CONCLUSION: 1. Chronic ischemic small vessel vasculopathy with similar changes in the brainstem. 2. No acute infarction. Christian Kilgore MD Head CT 02/02/17 1605 Signed Impressions: Service Date/Time: Thursday, February 02, 2017 18:21 - CONCLUSION: Normal examination. Dante Elder MD Objective Remarks GENERAL: This is a well-nourished, well-developed patient, in no apparent distress. CARDIOVASCULAR: Regular rate and rhythm without murmurs, gallops, or rubs. RESPIRATORY: Clear to auscultation. Breath sounds equal bilaterally. No wheezes , rales, or rhonchi. GASTROINTESTINAL: Abdomen soft, non-tender, nondistended. Normal active bowel sounds MUSCULOSKELETAL: Extremities without clubbing, cyanosis, or edema. NEURO: Alert & Oriented x4 to person, place, time, situation. Moves all ext x4 A/P Problem List: (1) Neurological symptoms Status: Acute Plan: - resolved - MRI brain (02/02/17) --> NO acute findings, microvascular disease noted. - physical exam is unremarkable - decrease glucotrol to 2.5mg - prior to discharge will draw TSH, T4, b12, folate, ammonia, rpr --> f/u with PCP for results - f/u with PCP, Dr. Amilcar Hanson in 1 week (2) Diabetes Status: Chronic Plan: - see above (3) UTI (urinary tract infection) Status: Acute Plan: - abnormal UA - urine culture still pending - bactrim ds bid x 5d (4) Acute renal insufficiency Status: Chronic Plan: - mild elevation of creatinine - stable - can be repeated outpt. Problem Qualifiers (1) Diabetes: Qualified Code: E11.8 - Type 2 diabetes mellitus with complication, without long-term current use of insulin (2) UTI (urinary tract infection): Qualified Code: N39.0 - Urinary tract infection with hematuria, site unspecified Crow Dhaliwal DO Feb 03, 2017 15:21
[2017-02-03] MEDS ORDERED: BACT800T5 PO (15:22)
[2017-02-03 16:46] LABS: FREE T4 0.91 NG/DL (0.76-1.46)
[2017-02-03 16:48] LABS: HEMOGLOBIN A1a 1.2 %; HEMOGLOBIN Ao 83.1 %; HEMOGLOBIN LA1C 2.4 %; HEMOGLOBIN P3 4.4 %
[2017-02-04 10:34] LABS: RAPID PLASMA REAGIN SCREEN NON-REACTIVE (NON-REACTVE)
== END 2017-02-03 16:05 | disposition home or self-care (01) ==
LOC: NEPE 15:13 → NEDH 19:22 → NEPGCP 22:55
PROVIDERS: ADMIT Hospitalist; ATTEND Hospitalist
DX: E11.9 Type 2 diabetes mellitus without complications (principal); N39.0 Urinary tract infection, site not specified; R41.0 Disorientation, unspecified; R26.81 Unsteadiness on feet; N28.9 Disorder of kidney and ureter, unspecified; R31.9 Hematuria, unspecified; R13.10 Dysphagia, unspecified; R79.89 Other specified abnormal findings of blood chemistry; I10 Essential (primary) hypertension; E78.5 Hyperlipidemia, unspecified; E78.00 Pure hypercholesterolemia, unspecified; K21.9 Gastro-esophageal reflux disease without esophagitis; F41.9 Anxiety disorder, unspecified; M19.90 Unspecified osteoarthritis, unspecified site; Z79.899 Other long term (current) drug therapy; Z79.890 Hormone replacement therapy; Z85.528 Personal history of other malignant neoplasm of kidney; Z98.1 Arthrodesis status
CPT/HCPCS: 70450; 70553; 80048; 80053; 81001; 82140; 82550; 82607; 82746; 82948; 83036; 84439; 84443; 84484; 85007; 85025; 85027; 85610; 85730; 86592; 87077; 87086; 87186; 93005; 99285; A9579; G0378; J0696